=== PATIENT | female | born 1940 | race Two or more races ===

== ENCOUNTER 2018-07-15 06:00 | Day surgery (SDC) | payer OTHER ==
[~2018-07-15] VITALS: Ht 157.5 cm; Wt 62.1 kg
[~2018-07-15 06:00] MED LIST: COZAAR50 MG PO
[2018-07-17] MEDS ORDERED: SYNTHROID100 MCG PO (10:50)
[2018-07-17] MEDS ORDERED: CALCITRIOL0.5 MCG PO (10:50)
[2018-07-17] MEDS ORDERED: PERCOCET 5-3251 EACH PO (10:51)
== END 2018-07-16 08:00 | disposition home or self-care (01) ==
LOC: CIR.AMB 06:00 → O/R 07-16 05:20 → SURH 07-16 05:20 → CIR.AMB 07-16 08:00 → EDSTATUS 07-16 10:15 → SURH 07-16 10:15 → O/R 07-16 11:20 → SURH 07-16 11:20
DX: I11.9 Hypertensive heart disease without heart failure (principal)

== ENCOUNTER 2018-11-24 07:46 | Outpatient (CLI) | payer OTHER ==
[~2018-11-24 07:46] MED LIST changes: +CALCITRIOL0.5 MCG PO; +PERCOCET 5-3251 EACH PO; +SYNTHROID100 MCG PO
== END 2018-11-24 07:50 | disposition home or self-care (01) ==
LOC: LAB 07:46
DX: C73 Malignant neoplasm of thyroid gland (principal); E89.0 Postprocedural hypothyroidism

== ENCOUNTER → 2018-12-05 12:32 | Outpatient (CLI) | payer OTHER | END | disposition home or self-care (01) | LOC: NUCLEAR 12:32 | DX: C73 Malignant neoplasm of thyroid gland (principal); E89.0 Postprocedural hypothyroidism | CPT/HCPCS: 79005; A9517 ==

== ENCOUNTER 2019-11-16 12:43 | Outpatient (CLI) | payer OTHER | END 2019-11-16 13:04 | disposition home or self-care (01) | LOC: NUCLEAR 12:43 | PROVIDERS: ATTEND Internal Medicine Sports Medicine | DX: C73 Malignant neoplasm of thyroid gland (principal) | CPT/HCPCS: 78018; 78020; A9528 ==